=== PATIENT | male | born 1970 | race Caucasian/White ===

== ENCOUNTER 2016-12-09 10:28 | Emergency (ER) | payer OTHER | END 2016-12-09 12:05 | disposition home or self-care (01) | LOC: ER1 10:28 | DX: M25.461 Effusion, right knee (principal); M25.561 Pain in right knee; F17.210 Nicotine dependence, cigarettes, uncomplicated; Z88.0 Allergy status to penicillin | CPT/HCPCS: 29530; 73564; 99283; J1885 ==

== ENCOUNTER 2021-09-04 13:56 | Emergency (ER) | payer OTHER ==
[~2021-09-04 13:56] MED LIST: LAMICTAL200 MG PO
[2021-09-04 14:55] LABS: RED BLOOD COUNT 5.32 M/UL (4.20-5.50); WHITE BLOOD COUNT 11.8 K/UL (4.5-11.0)
[2021-09-04 15:15] LABS: BUN/CREATININE RATIO 23 (0-10)
[2021-09-04] MEDS ORDERED: BENTYL 20MG TAB20 MG PO (15:58)
[2021-09-04] MEDS ORDERED: ZOFRAN 4 MG TAB4 MG PO (15:58)
== END 2021-09-04 16:15 | disposition home or self-care (01) ==
LOC: ER1 13:56
PROVIDERS: Physician Assistant
DX: R10.30 Lower abdominal pain, unspecified (principal); R11.2 Nausea with vomiting, unspecified; R19.7 Diarrhea, unspecified; Z20.822 Contact with and (suspected) exposure to COVID-19; I25.2 Old myocardial infarction; E11.9 Type 2 diabetes mellitus without complications; J44.9 Chronic obstructive pulmonary disease, unspecified; I10 Essential (primary) hypertension; Z88.0 Allergy status to penicillin
CPT/HCPCS: 80053; 83690; 85025; 96372; 96374; 99284; J0500; J2405; U0002